=== PATIENT | female | born 1935 | race Caucasian/White ===

== ENCOUNTER → 2017-11-10 | Outpatient (CLI) | payer OTHER ==
[~2017-11-10] MED LIST: ARMOUR THYROID60 MG PO; ASPIR 8181 MG PO; CELEBREX200 MG PO; FLE10 PO; MECLIZINE12.5 M1 PO; METOPROLOL TART25 M1 PO; ZES10 PO; ZOC20 PO
== END | disposition home or self-care (01) ==
LOC: RD 11:24
DX: R05 Cough (principal)